=== PATIENT | male | born 1985 | race Caucasian/White ===

== ENCOUNTER 2017-03-05 13:06 | Emergency (ER) | payer MEDICAID ==
[~2017-03-05] VITALS: Ht 182.9 cm; Wt 220.0 kg
[2017-03-05 13:36] VITALS: BP 160/92
== END 2017-03-05 16:29 | disposition home or self-care (01) ==
LOC: ER 15:36
DX: S93.402A Sprain of unspecified ligament of left ankle, initial encounter (principal); I10 Essential (primary) hypertension; X58.XXXA Exposure to other specified factors, initial encounter; Y93.89 Activity, other specified; Y92.89 Other specified places as the place of occurrence of the external cause; Y99.8 Other external cause status
CPT/HCPCS: 73610; 99284; Z7610